=== PATIENT | female | born 1970 | race Caucasian/White ===

== ENCOUNTER 2016-12-17 22:55 | Emergency (ER) | payer OTHER ==
[~2016-12-17] VITALS: Ht 167.6 cm; Wt 52.0 kg
[2016-12-17 23:13] VITALS: BP 105/72; PULSE 95; RESP 16; O2SAT 100
--- NOTE | 2016-12-17 23:26 | ED.REPORT ---
HPI-General Illness Date of Service Dec 17, 2016 ED Provider: Dr. Yoav Morejon M.D. A healthy 46 year old female presents to the ED with RUQ abdominal pain onset today. Associated symptoms include nausea and anxiety. She recently had a mole biopsy on her abdomen that became infected. She was seen in Clinic three days ago and was discharged with an antibiotic that provided relief. The patient admits to drinking alcohol and taking Valium x1 this evening. She is hungry and requests food. Nursing Notes Stated Complaint: DIAZEPAM & ALCOHOL CONSUMPTION Chief Complaint: Substance Abuse Nursing Notes Reviewed: Yes Allergies: Coded Allergies: codeine (Verified Allergy, Severe, DRY HEAVES AND BILE, 08/23/09) Scheduled Omeprazole (Omeprazole) 20 Mg Tablet. 20 MG PO BID General Time Seen by MD: 23:26 Chief Complaint Abdominal pain Hx Obtained From: Patient Arrived By: Walk-in Sudden in Onset?: No Onset Occurred: 5 - 8 hours ago Context of Onset: EtOH use Symptom Duration: Since onset Location: : Abdomen Quality: Painful Severity: Current: Moderate Severity: Maximum: Moderate Associated with: Reports: Nausea, Denies: Fever Pertinent Negative: Relieved by nothing Recent Healthcare: No recent doctor visit Past Medical History Past Medical History None reported Past Surgical History Mole biopsy Smoking History Unknown if Ever Smoker Social History Drug Use: Vicodin Other Social History: Good social support Ambulatory Status Independent Review of Systems Full Review of Systems Constitutional: Denies: Fever Respiratory: Denies: Non-productive cough, Shortness of breath GI: Reports: Abdominal pain (RUQ), Nausea, Denies: Diarrhea, Vomiting Psychiatric: Reports: Anxiety Complete sys rev & neg: except as marked. Physical Exam Vital Signs Vital Signs Date Time Temp Pulse Resp B/P Pulse Ox O2 Delivery O2 Flow Rate FiO2 12/18/16 01:14 93 17 99/57 99 Room Air 12/17/16 23:13 36.6 95 16 105/72 100 Room Air Initial VS: Reviewed Head / Eyes: Atraumatic, Normocephalic ENT: Conjunctiva normal, No scleral icterus Neck: Supple, Full range of motion Respiratory: Breath sounds normal, Clear to auscultation, No respiratory distress Cardiovascular: Regular rate & rhythm, Heart sounds normal Skin: Warm, Dry, No cyanosis Neurologic: Alert, Oriented General/Constitutional: Awake, Alert Appearance / Presentation: Positive: Intoxicated Abdomen: Soft Tenderness/Guarding/Rebound: Positive: Tender RUQ..., Tender epigastric Interpretation & Diagnostics URINE DIPSTICK: 1.015 sp gravity 7 pH Normal Glucose Normal Urobilinogen Otherwise Negative URINE : Negative Lab Results Interpretation Result Diagram: 12/18/16 0012 12/18/16 0012 Test 12/18/16 00:12 12/18/16 01:33 12/18/16 01:34 White Blood Count 8.3th/mm3 (3.8-10.1) Red Blood Count 4.51mil/mm3 (3.90-5.20) Hemoglobin 14.4g/dL (12.0-15.6) Hematocrit 43.4% (35.0-46.0) Mean Corpuscular Volume 96.2fL (81-100) Mean Corpuscular Hemoglobin 31.9pg (27.0-35.0) Mean Corpuscular Hemoglobin Concent 33.2% (32.0-37.0) Red Cell Distribution Width 11.9% (12.3-15.4) Platelet Count 286bil/L (150-400) Neutrophils (%) (Auto) 53.3% (40-74) Lymphocytes (%) (Auto) 38.0% (14-46) Monocytes (%) (Auto) 6.7% (4-12) Eosinophils (%) (Auto) 1.6% (0-5) Basophils (%) (Auto) 0.2% (0-3) Band Neutrophils % 0% (1-5) Prothrombin Time 10.1sec (8.1-12.5) Prothromb Time International Ratio 0.95ratio Sodium Level 139mEq/L (134-144) Potassium Level 4.2mEq/L (3.5-5.2) Chloride Level 101mEq/L (97-108) Carbon Dioxide Level 25mmol/L (18-29) Blood Urea Nitrogen 7mg/dL (6-24) Creatinine 0.55mg/dL (0.57-1.00) Estimat Glomerular Filtration Rate 172mL/min (>59) Glucose Level 81mg/dL (60-99) Calcium Level 9.1mg/dL (8.5-10.1) Magnesium Level 2.2mg/dL (1.6-2.6) Total Bilirubin 0.3mg/dL (0.0-1.2) Aspartate Amino Transf (AST/SGOT) 17U/L (0-50) Alanine Aminotransferase (ALT/SGPT) 10U/L (0-32) Alkaline Phosphatase 35U/L (25-150) Total Protein 7.0g/dL (6.4-8.4) Albumin 4.5g/dL (3.4-5.0) Lipase 25U/L (13-60) Hold [place] Top Tube Received (Received) Alcohol, Quantitative 240mg/dL (0-10) Hold Urine Received (Received) Urine Color Straw (YELLOW) Urine Appearance Clear (CLEAR,HAZY) Urine pH 6.5 (5.0-8.0) Urine Specific [place] <1.005 (1.003-1.035) Urine Protein Negativemg/dL (NEG,TRACE) Urine Glucose (UA) Negativemg/dL (NEGATIVE) Urine Ketones Negativemg/dL (NEGATIVE) Urine Occult Blood Trace (NEGATIVE) Urine Nitrite Negative (NEGATIVE) Urine Bilirubin Negative (NEGATIVE) Urine Urobilinogen Normalmg/dL (NORMAL) Urine Leukocyte Esterase Negative (NEGATIVE) Urine RBC 0-2/hpf (0-2) Urine WBC 0-5/hpf (0-5) Urine Epithelial Cells Occasional/hpf (NONE-MOD) Urine Crystals None seen (NONE SEEN) Urine Bacteria Few/hpf (NONE-FEW) Urine Hyaline Casts None/lpf (NONE) Urine Granular Casts None seen (NONE SEEN) Urine Waxy Casts None seen (NONE SEEN) Urine Red Blood Cell Casts None seen (NONE SEEN) Urine White Blood Cell Casts None seen (NONE SEEN) Urine Mucus None seen (None Seen) Urine Trichomonas None seen (NONE SEEN) Urine Yeast None (NONE SEEN) Urinalysis Comment None Urine Culture Reflexed Not indicated ECG Interpretation ECG Interpretation: Sinus rhythm rate 81 Time: 23:49 Interpreted by: ED physician Re-Eval/Medical Decision Med Decision/Clinical Course Grossly intoxicated 46-year-old presents with some upper abdominal discomfort that appears to be gastritis. Labs are negative. Exam is negative. Alcohol was 240 after "two shots" she is discharged home with friend for follow-up with PCP as needed. Omeprazole twice a day for her gastritis. Time of Eval: 01:10 Patient Status: Condition improved Re-Evaluation/Progress Note: Discussed with patient lab results, diagnosis, and plan for discharge. Follow-up and return to the ER instructions given. Patient agrees with plan for care and all questions were addressed. Counseled Regarding: Diagnosis, Lab results, Need for follow-up, When/why to return to ED Discharge & Departure Primary Impression: Alcohol intoxication Complication of substance-induced condition: uncomplicated Qualified Code: F10.120 - Alcohol abuse with intoxication, uncomplicated Additional Impressions: Gastritis Abdominal pain Abdominal location: epigastric Qualified Code: R10.13 - Epigastric pain Disposition: Home Discharge Condition All VS Reviewed: Yes Condition: Improved Patient Instructions: Alcohol Intoxication (ED), At-Risk Alcohol Use (ED), Gastritis (ED) Additional Instructions: Your alcohol level was 240 tonight. I suggest you moderate your drinking. The pain may be from gastritis. I have no laboratory evidence of liver disease , gallbladder disease, or pancreatitis. Begin Prilosec twice daily for two weeks. Follow-up with your doctor in the office. Referrals: Perfecto Bryan MD (PCP) Scribe Attestation Portions of this note were transcribed by Pati Lombardo. I, Dr. Morejon, personally performed the history, physical exam, and medical decision-making; I reviewed and confirmed the accuracy of the information in the transcribed note. Signed by: April Gomez, 12/18/2016, 03:10 copies to: Perfecto Bryan MD, Christopher W MD Dec 17, 2016 23:26 PATI LOMBARDO Dec 17, 2016 23:41
[2016-12-17] MEDS ORDERED: Pantoprazole 40 mg ER24 Tablet PO ONE (23:40)
[2016-12-18 00:20] LABS: BASOPHILS % (AUTO) 0.2 % (0-3); EOSINOPHILS % (AUTO) 1.6 % (0-5); MONOCYTES % (AUTO) 6.7 % (4-12); Mean Corpuscular Hemoglobin 31.9 pg (27.0-35.0); Mean Corpuscular Volume 96.2 fL (81-100); NEUTROPHILS % (AUTO) 53.3 % (40-74); Platelet Count 286 bil/L (150-400)
[2016-12-18 00:41] LABS: INR 0.95 ratio
[2016-12-18 00:53] LABS: Magnesium 2.2 mg/dL (1.6-2.6)
[2016-12-18] MEDS ORDERED: OMEP20TA86 PO (01:05)
[2016-12-18 01:14] VITALS: BP 99/57; PULSE 93; RESP 17; O2SAT 99
[2016-12-18 01:59] LABS: APPEARANCE,URINE CLEAR (CLEAR,HAZY); COLOR,URINE STRAW (YELLOW); OCCULT BLOOD,URINE TRACE (NEGATIVE); PH,URINE 6.5 (5.0-8.0); UROBILINOGEN,URINE NORMAL (NORMAL)
== END 2016-12-18 01:07 | disposition home or self-care (01) ==
LOC: SED 22:55
DX: F10.120 Alcohol abuse with intoxication, uncomplicated (principal); K29.70 Gastritis, unspecified, without bleeding; Z98.890 Other specified postprocedural states
CPT/HCPCS: 36415; 80053; 81000; 81025; 83690; 83735; 85025; 85610; 93005; 99284; G0480